=== PATIENT | female | born 1995 | race Caucasian/White ===

== ENCOUNTER 2025-03-17 11:37 | Emergency (ER) | payer SELFPAY ==
[~2025-03-17] VITALS: Ht 160 cm; Wt 111.4 kg
[2025-03-17 11:48] VITALS: TEMP 98.4
--- NOTE | 2025-03-17 12:35 | Physician Documentation ---
HPI ~ General Chief Complaint: Tooth Problem Stated Complaint: JAW PAIN Time Seen by MD: 12:26 History of Present Illness HPI Comment 29-year-old female with waxing and waning right lower dental pain in the area of tooth number 28 and 29 for a week to two. No obvious facial asymmetry, cellulitis or abscess. Patient is attempting to get establish with local dentist for consideration of latter day or extraction. No reported trismus. Medication Reconciliation Allergies: Coded Allergies: No Known Allergies (Unverified , 03/17/25) Scheduled Chlorhexidine Gluconate (Peridex), 15-30 ML PO Q8H Ibuprofen* (Motrin*), 800 MG PO Q8H Penicillin V Potassium* (Penicillin VK*), 1 TAB PO Q6H Review of Systems All Other Systems at this time: Reviewed and Negative ENT: Reports: other (Pain) Physical Exam Vital Signs: RN Vital Signs have been reviewed: Yes, Temperature: 98.4, Source: Temporal, Heart Rate: 91, Respiratory Rate: 16, BP: 145/91, Pulse Oximetry: 99, Weight: 111.360 Oxygen Flow Rate: 0 General Appearance: alert, WD/WN, mild distress EENT General: normal ENT inspection Ear: auricle normal Mouth/Throat: normal mouth inspection Palate: normal inspection Teeth/Gums: carious (Tooth number 29), gingiva redness; No: gingiva swelling Face: normal inspection, tender (Right femur jaw); No: swelling Head: normal inspection Neck: non-tender, lymphadenopathy (R) Respiratory: no respiratory distress Chest: no accessory muscle use Progress Results/Orders Results/Orders Vital Signs 03/17/25 11:48 Temp 98.4 Pulse 91 Resp 16 B/P (MAP) 145/91 Pulse Ox 99 O2 Flow Rate 0 Medical Decision Making Additional information obtaine: N/A Findings Examination history consistent with dentalgia likely secondary to dental infection as evidenced by exam. No obvious periapical apical abscess and/or periodontal abscess. We will begin antibiotic and provide NSAID therapy along with a Peridex. Recommendations are for dental follow up. No clinical concern for angioedema, Nba's angina. Safely discharge. Differential Dx:Considerations: Include: Alveolar fracture, Alveolar osteitis, Facial Cellulitis, Periapical abscess, Peridontal abscess, Pulpitis Departure Disposition: 01 HOME / SELF CARE / HOMELESS Impression: Primary Impression: Dental caries Condition: Stable Discharge Instructions: Dental Caries, Adult Additional Instructions: Please begin antibiotic and other medications as directed. Please make follow up with a dentist and return to the emergency department if symptoms worsen. Thank you for visiting [facility]. Referrals: NO PRIMARY CARE PROVIDER (PCP) Prescriptions Ibuprofen* (Motrin*) 400 Mg Tablet 800 MG PO Q8H for 10 Days, #30 TAB Prov: FRANCISCO GUZMÁN 03/17/25 Chlorhexidine Gluconate (Peridex) 0.12 % Mouthwash 15-30 ML PO Q8H for 8 Days, #473 ML 0 Refills Prov: FRANCISCO GUZMÁN 03/17/25 Penicillin V Potassium* (Penicillin VK*) 500 Mg Tablet 1 TAB PO Q6H for 10 Days, #40 TAB Prov: FRANCISCO GUZMÁN 03/17/25 Education Educated: Patient Educated regarding: diagnosis, treatment, prognosis, need for follow up Signature Scribe Signature: . Attestation: . FRANCISCO GUZMÁN Mar 17, 2025 12:35
[2025-03-17] MEDS ORDERED: PENI500T2 PO (13:06)
[2025-03-17] MEDS ORDERED: CHLO118M PO (13:06)
[2025-03-17] MEDS ORDERED: IBUP-1984 PO (13:06)
[2025-03-17 13:27] VITALS: BP 145/87; PULSE 89; RESP 14; O2SAT 98
== END 2025-03-17 13:28 | disposition home or self-care (01) ==
LOC: ER 11:38
DX: K02.9 Dental caries, unspecified (principal); Z79.899 Other long term (current) drug therapy
CPT/HCPCS: 99283